=== PATIENT | male | born 1960 | race Hispanic/Latino ===

== ENCOUNTER → 2019-12-28 | Day surgery (SDC) | payer OTHER ==
[2019-12-23 16:27] LABS: BASOPHILS % 0.6 % (0.0-1.0); EOSINOPHILS # (AUTO) 0.1 (0.0-0.4); EOSINOPHILS % 2.4 % (0.0-6.0); HEMATOCRIT 42.7 % (38.2-49.6); HEMOGLOBIN 14.4 g/dL (14.0-18.0); LYMPHOCYTES # (AUTO) 1.1 (1.0-3.2); LYMPHOCYTES % 23.3 % (18.0-39.1); MEAN CORPUSCULAR HEMOGLOBIN 29.6 pg (28-32); MEAN CORPUSCULAR HGB CONC 33.7 g/dL (31-35); MEAN CORPUSCULAR VOLUME 87.9 fL (81-99); MONOCYTES # (AUTO) 0.3 (0.2-0.8); MONOCYTES % 6.9 % (4.4-11.3); NEUTROPHILS # (AUTO) 3.3 (2.1-6.9); NEUTROPHILS % 66.6 % (38.7-80.0); PLATELET COUNT 189 x10e3/uL (140-360); RED BLOOD COUNT 4.86 x10e6/uL (4.3-5.7); RED CELL DISTRIBUTION WIDTH 12.9 % (11.7-14.4)
[2019-12-23 16:39] LABS: ALANINE AMINOTRANSFERASE 11 IU/L (0-55); ALBUMIN 4.1 g/dL (3.5-5.0); ALBUMIN/GLOBULIN RATIO 1.2 (0.8-2.0); ALKALINE PHOSPHATASE 54 IU/L (40-150); ANION GAP 18.4 mmol/L (8-16); BLOOD UREA NITROGEN 20 mg/dL (7-26); BUN/CREATININE RATIO 20 (6-25); CALCIUM 8.8 mg/dL (8.4-10.2); CARBON DIOXIDE 20 mmol/L (22-29); CHLORIDE 102 mmol/L (98-107); CREATININE, SERUM 0.99 mg/dL (0.72-1.25); EST GLOMERULAR FILTRATION RATE > 60 ML/MIN (60-); GLUCOSE 137 mg/dL (74-118); POTASSIUM 3.4 mmol/L (3.5-5.1); SODIUM 137 mmol/L (136-145)
[~2019-12-28] VITALS: Ht 175.3 cm; Wt 65.8 kg
[~2019-12-28] MED LIST: ASPIRIN325 MG PO; BENZOCAINE 20% SPR 60 ML CAN ONE; BYDUREON P2 MG/0.65 SC; CEFEPIME-D1 GM/50 ML IV; COLACE100 MG PO; COREG3.125 MG PO; ENTRESTO 24 MG1 EACH PO; ETOMIDATE 2 MG/ML 10 ML INJ IV ONE; FARXIGA10 MG PO; LASIX40 MG PO; LIDOCAINE HCL 2% LOCAL INJ 5 ML SDV VIAL INJ ONE; LIPITOR20 MG PO; METFORMIN HCL500 MG PO; MIDAZOLAM HCL 2 MG/2 ML VIAL ONE; PLAVIX75 MG PO; PRILOSEC OTC20 MG PO; SODIUM CHLORIDE 0.9% 1000ML 1,000 ML ONE; SPIRONOLACTONE25 MG PO
[2019-12-28 13:00] VITALS: BP 119/89
[2019-12-28 13:15] VITALS: BP 118/79
[2019-12-28 13:30] VITALS: BP 112/80
== END | disposition home or self-care (01) ==
LOC: CATH LAB 11:40
PROVIDERS: ATTEND Internal Medicine Interventional Cardiology
DX: I25.119 Atherosclerotic heart disease of native coronary artery with unspecified angina pectoris (principal); I25.10 Atherosclerotic heart disease of native coronary artery without angina pectoris; Z78.9 Other specified health status; I38 Endocarditis, valve unspecified; I25.2 Old myocardial infarction; E11.9 Type 2 diabetes mellitus without complications; I50.23 Acute on chronic systolic (congestive) heart failure; Z83.3 Family history of diabetes mellitus; Z82.49 Family history of ischemic heart disease and other diseases of the circulatory system; Z84.1 Family history of disorders of kidney and ureter; Z79.82 Long term (current) use of aspirin; Z79.84 Long term (current) use of oral hypoglycemic drugs; I11.0 Hypertensive heart disease with heart failure
CPT/HCPCS: 36415 ×2; 80053; 82948; 85025; 87635; 93320; 93325; J2001; J2250; J7030; 93312